=== PATIENT | female | born 1950 | race African-American/Black ===

== ENCOUNTER 2024-11-11 18:09 | Inpatient (IN) | payer OTHER, BC ==
[2024-11-11 18:35] VITALS: BMI 12.9
[2024-11-11] MEDS: SODIUM CHLORIDE 0.9% 500 ML INFUS.BAG IV ONE ×2 (19:50→20:27)
[2024-11-11 20:00] LABS: CO2 29.0 mmol/L (21-32); GLUCOSE,RANDOM 87.0 mg/dL (74-106)
[2024-11-11 20:03] LABS: CREATININE 0.9 mg/dL (0.55-1.3); SGPT/ALT 41.0 U/L (13-61)
[2024-11-11 20:04] LABS: TOT PROT 5.6 g/dl (6.4-8.2)
[2024-11-11 20:06] LABS: ALK PHOS 105.0 U/L (45-117)
[2024-11-11 20:17] LABS: SGOT/AST 40.0 U/L (15-37)
[2024-11-11] MEDS ORDERED: ACETAMINOPHEN INJECTION 100 ML ONE (20:21)
[2024-11-11] MEDS: ACETAMINOPHEN 1000 MG/100 ML BAG IVPB ONE (20:27)
[2024-11-11 21:40] LABS: MCHC 32.0 g/dl (32.2-35.5); MEAN CELL VOLUME 89.3 fl (79.4-94.8); MEAN PLT VOLUME 9.2 fl (9.4-12.3); RDW 14.4 % (12.4-16.6)
[2024-11-11 21:54] LABS: URINE APPEARANCE CLEAR; URINE BILIRUBIN NEGATIVE (NEGATIVE); URINE COLOR YELLOW; URINE GLUCOSE (UA) NEGATIVE (NEGATIVE); URINE KETONE NEGATIVE (NEGATIVE); URINE LEUK ESTERASE NEGATIVE (NEGATIVE); URINE NITRITE NEGATIVE (NEGATIVE); URINE PROTEIN NEGATIVE (NEGATIVE); URINE UROBILINOGEN 0.2 mg/dL (0.2-1.0)
[2024-11-11] MEDS ORDERED: ACETAMINOPHEN 325 MG TABLET (FP) PO PRN (22:25)
[2024-11-11] MEDS ORDERED: HEPARIN NA (PORCINE) 5,000 UNITS/ML 1ML VIAL ONE (22:47)
[2024-11-11] MEDS: D5-1/2NS+20 MEQ KCL - 20 MEQ/1,000 ML INFUS.BAG IV SCH (23:00)
[2024-11-11] MEDS: HEPARIN NA (PORCINE) 5,000 UNITS/ML 1ML VIAL SQ SCH (23:00)
[2024-11-12] MEDS: MULTIVITAMINS THER W-MINERALS COMBO TABLET (FP) PO SCH (11:19)
[2024-11-12] MEDS: SERTRALINE HCL 50 MG TABLET (FP) PO SCH (11:20)
[2024-11-12] MEDS: PANTOPRAZOLE 20 MG TABLET PO SCH (11:20)
[2024-11-12] MEDS: FOLIC ACID 1 MG TABLET (FP) PO SCH (11:20)
[2024-11-12 11:30] LABS: MCHC 31.9 g/dl (32.2-35.5); MEAN CELL VOLUME 90.1 fl (79.4-94.8); MEAN PLT VOLUME 9.8 fl (9.4-12.3); RDW 14.6 % (12.4-16.6)
[2024-11-12 12:05] LABS: CO2 24.0 mmol/L (21-32); GLUCOSE,RANDOM 65.0 mg/dL (74-106)
[2024-11-12 12:09] LABS: CREATININE 0.8 mg/dL (0.55-1.3)
[2024-11-12 13:54] LABS: SGOT/AST 25.0 U/L (15-37); SGPT/ALT 34.0 U/L (13-61)
[2024-11-12 13:56] LABS: TOT PROT 5.0 g/dl (6.4-8.2)
[2024-11-12 13:57] LABS: ALK PHOS 94.0 U/L (45-117)
[2024-11-12] MEDS: IRON SUCROSE INJECTION 200 MG in SODIUM CHLORIDE 100 ML IVPB ONE (17:08)
[2024-11-12] MEDS: PNEUMOC 20-VAL CONJ-DIP CRM/PF 0.5 ML SYRINGE IM ONE (17:09)
[2024-11-12] MEDS: DONEPEZIL HCL 5 MG TABLET (FP) PO SCH (22:52)
[2024-11-12] MEDS: MELATONIN 5 MG TABLETS PO ONE (23:54)
[2024-11-13 08:22] LABS: ABSOLUTE IMMATURE GRANULOCYTES 0.05 x10^3/uL (0.0-0.031); BASOPHILS # 0.02 x10^3/uL (0.01-0.08); EOSINOPHIL % 0.0 % (0.7-5.8); EOSINOPHILS # 0.00 x10^3/uL (0.04-0.36); MCHC 31.9 g/dl (32.2-35.5); MEAN CELL VOLUME 88.4 fl (79.4-94.8); MEAN PLT VOLUME 9.8 fl (9.4-12.3); MONOCYTE # 0.32 x10^3/uL (0.24-0.86); MONOCYTE % 3.1 % (4.7-12.5); RDW 14.1 % (12.4-16.6)
[2024-11-13 09:16] LABS: CO2 27.0 mmol/L (21-32); GLUCOSE,RANDOM 82.0 mg/dL (74-106)
[2024-11-13 09:19] LABS: CREATININE 0.6 mg/dL (0.55-1.3)
[2024-11-13] MEDS: PANTOPRAZOLE 40 MG TABLET PO SCH (10:16)
[2024-11-13 15:45] LABS: IRON SERUM 123.0 ug/dL (50-175)
[2024-11-13] MEDS: MELATONIN 5 MG TABLETS PO SCH (21:32)
[2024-11-14 08:35] LABS: MCHC 33.1 g/dl (32.2-35.5); MEAN CELL VOLUME 86.8 fl (79.4-94.8); MEAN PLT VOLUME 10.2 fl (9.4-12.3); RDW 14.3 % (12.4-16.6)
[2024-11-14 09:11] LABS: CO2 25.0 mmol/L (21-32); GLUCOSE,RANDOM 67.0 mg/dL (74-106)
[2024-11-14 09:15] LABS: CREATININE 0.6 mg/dL (0.55-1.3)
[2024-11-14] MEDS: D5-1/2NS+20 MEQ KCL - 20 MEQ/1,000 ML INFUS.BAG IV SCH (20:18)
[2024-11-15 08:38] LABS: MCHC 31.5 g/dl (32.2-35.5); MEAN CELL VOLUME 89.3 fl (79.4-94.8); MEAN PLT VOLUME 9.9 fl (9.4-12.3); RDW 14.2 % (12.4-16.6)
[2024-11-15 09:24] LABS: CO2 24.0 mmol/L (21-32); GLUCOSE,RANDOM 72.0 mg/dL (74-106)
[2024-11-15 09:27] LABS: CREATININE 0.5 mg/dL (0.55-1.3)
[2024-11-15 20:04] VITALS: RESP 18
[2024-11-16 10:52] VITALS: BP 136/77; PULSE 64; TEMP 97.2
== END 2024-11-16 16:35 | DRG 312 ==
LOC: JER 18:09 → JERBED 21:19 → OBSVTOIN 22:23 → J4S 23:48
PROVIDERS: ADMIT Internal Medicine; ATTEND Internal Medicine
DX: R55 Syncope and collapse (principal); E43 Unspecified severe protein-calorie malnutrition; R64 Cachexia; Z68.1 Body mass index [BMI] 19.9 or less, adult; E86.0 Dehydration; F41.8 Other specified anxiety disorders; D64.9 Anemia, unspecified; T68.XXXA Hypothermia, initial encounter; X58.XXXA Exposure to other specified factors, initial encounter; Y93.9 Activity, unspecified; Y92.89 Other specified places as the place of occurrence of the external cause; Y99.9 Unspecified external cause status; F03.90 Unspecified dementia, unspecified severity, without behavioral disturbance, psychotic disturbance, mood disturbance, and anxiety
CPT/HCPCS: 36415; 71045-TC-FY; 71250-TC; 74177-TC; 80048; 80053; 80076; 81003; 82272; 82728; 82962; 83540; 83550; 83735; 84100; 84484; 85025; 87086; 87637-QW; 90677; 93005; 93010; 93306-TC; 93971-TC; 97116-GP; 97161-GP; 99285-25; G0378; J1756

== ENCOUNTER 2024-11-25 09:32 | Emergency (ER) | payer OTHER, BC ==
[2024-11-25 10:35] VITALS: BMI 32.4
[2024-11-25 13:49] VITALS: RESP 18; TEMP 96.9
[2024-11-25 20:30] VITALS: BP 127/82; PULSE 73
== END 2024-11-25 20:36 ==
LOC: JER 09:32
DX: S31.801A Laceration without foreign body of unspecified buttock, initial encounter (principal); W19.XXXA Unspecified fall, initial encounter
CPT/HCPCS: 70450-TC; 71045-TC-FY; 72170-TC-FY; 82962; 93005; 93010; 99285-25

== ENCOUNTER 2024-12-01 02:24 | Emergency (ER) | payer OTHER, BC ==
[2024-12-01 02:40] VITALS: BMI 14.8
[2024-12-01 03:44] LABS: ABSOLUTE IMMATURE GRANULOCYTES 0.06 x10^3/uL (0.0-0.031); BASOPHILS # 0.02 x10^3/uL (0.01-0.08); EOSINOPHIL % 0.0 % (0.7-5.8); EOSINOPHILS # 0.00 x10^3/uL (0.04-0.36); MCHC 31.6 g/dl (32.2-35.5); MEAN CELL VOLUME 90.9 fl (79.4-94.8); MEAN PLT VOLUME 9.6 fl (9.4-12.3); MONOCYTE # 0.47 x10^3/uL (0.24-0.86); MONOCYTE % 4.5 % (4.7-12.5); RDW 14.0 % (12.4-16.6)
[2024-12-01 03:52] LABS: INR 1.13 (0.83-1.09); PROTHROMBIN TIME (PATIENT) 12.3 SEC (9.7-13.0)
[2024-12-01 03:54] LABS: ACTIVATED PTT 32.0 SECONDS (25.2-36.5)
[2024-12-01 04:06] LABS: CO2 33.0 mmol/L (21-32); GLUCOSE,RANDOM 82.0 mg/dL (74-106)
[2024-12-01 04:08] LABS: SGPT/ALT 57.0 U/L (13-61)
[2024-12-01 04:09] LABS: CREATININE 0.8 mg/dL (0.55-1.3); SGOT/AST 56.0 U/L (15-37); TOT PROT 5.5 g/dl (6.4-8.2)
[2024-12-01 04:11] LABS: ALK PHOS 116.0 U/L (45-117)
[2024-12-01] MEDS: SODIUM CHLORIDE 0.9% 500 ML INFUS.BAG IV ONE (04:47)
[2024-12-01 05:38] LABS: HCV DIAGNOSTIC IN-HOUSE W/RFLX NON-REACTIVE (NONREACTIVE)
[2024-12-01 07:25] LABS: URINE APPEARANCE CLEAR; URINE BILIRUBIN NEGATIVE (NEGATIVE); URINE COLOR YELLOW; URINE GLUCOSE (UA) NEGATIVE (NEGATIVE); URINE KETONE NEGATIVE (NEGATIVE); URINE LEUK ESTERASE NEGATIVE (NEGATIVE); URINE NITRITE NEGATIVE (NEGATIVE); URINE PROTEIN NEGATIVE (NEGATIVE); URINE UROBILINOGEN 0.2 mg/dL (0.2-1.0)
[2024-12-01 13:04] VITALS: BP 101/82; PULSE 90; RESP 18; TEMP 96.8
[2024-12-01 20:43] LABS: HIV INTERPRETATION NEGATIVE (NEGATIVE)
== END 2024-12-01 11:24 ==
LOC: JER 02:24
DX: R51.9 Headache, unspecified (principal); W19.XXXA Unspecified fall, initial encounter
CPT/HCPCS: 36415; 70450-TC; 71045-TC-FY; 72125-TC; 72170-TC-FY; 72192-TC; 80053; 81003; 83735; 84484; 85025; 85610; 85730; 86803; 87086; 87389; 93005; 93010; 99285-25